=== PATIENT | male | born 1930 | race Caucasian/White ===

== ENCOUNTER 2018-01-05 04:53 | Emergency (ER) | payer MEDICARE, OTHER ==
[2018-01-05] MEDS ORDERED: METOPROLOL TARTRATE 25 MG TABLET PO STA (05:33)
[2018-01-05] MEDS ORDERED: METOPROLOL TARTRATE 25 MG TABLET ONE (05:33)
[2018-01-05 05:37] LABS: Hematocrit 40.1 % (42.0-52.0); Hemoglobin 13.8 gm/dL (13.5-18.0); Mean Cell Volume 90.9 fl (78-100); Mean Corpuscular Hemoglobin 31.3 pg (27-31); Mean Corpuscular Hgb Conc 34.4 g/dl (32-36); Mean Platelet Volume 9.8 fl (6.0-9.5); Neutrophil # 4.4 K/mm3 (1.3-6.0); Neutrophil % 64.3 % (42-75.0); Platelet Count 139 K/mm3 (150-450); Red Blood Count 4.41 M/mm3 (4.7-6.0); Red Cell Distribution Width 14.1 % (11.5-14.0); White Blood Count 6.8 K/mm3 (4.0-10.5)
[2018-01-05 05:48] LABS: Prothrombin Time (Patient) 13.8 Seconds (9.0-11.0)
[2018-01-05 05:50] LABS: INR 1.38 INR (0.90-1.10); Partial Thrombolplastin Time 32.5 Seconds (24-32)
[2018-01-05 05:58] LABS: Albumin * 3.5 gm/dl (3.4-5.0); Anion Gap 13.9 mmol/L (6.8-13.8); Bilirubin, Total 0.5 mg/dL (0.0-1.1); Ca. Corrected For Albumin 9.3 mg/dL (8.4-10.2); Calcium * 9.2 mg/dL (7.9-10.9); Carbon Dioxide 27.2 mmol/L (24-32.6); Potassium 4.1 mmol/L (3.4-4.6); Total Protein 6.4 gm/dL (6.2-8.2)
[2018-01-05 06:00] LABS: Troponin I 0.048 ng/ml (0.00-0.10)
--- NOTE | 2018-01-05 06:05 | ERNOTE ---
Chest Pain/Cardiac HPI Date of Service: 01/05/18 Chief Complaint: Palpitations Time Seen by Provider: 01/05/18 05:13 Source: patient Exam Limitations: no limitations Immunizations: IMMUNIZATION HX Immunizations Up to Date Yes History of Influenza Vaccine Yes Hx Pneumococcal Vaccination Yes Allergies/Adverse Reactions: Allergies codeine Allergy (Verified 01/05/18 05:16) diltiazem HCl [From Tiazac] Allergy (Verified 01/05/18 05:16) Home Medications: HOME MEDICATIONS Acetaminophen [Tylenol] 500 mg PO TID 10/23/16 [Last Taken Unknown] Albuterol Sulfate [Proair Respiclick] 90 mcg IH PRN PRN 10/23/16 [Last Taken Unknown] Atorvastatin Calcium 80 mg PO DAILY 10/23/16 [Last Taken Unknown] Calcium Carbonate/Vitamin D3 [Calcium 600 + D3 Softgel] 1 each PO DAILY [Last Taken Unknown] Cider Vinegar [Apple Cider Vinegar] 300 mg PO DAILY 10/23/16 [Last Taken Unknown ] Cinnamon Bark [Cinnamon] 1,000 mg PO DAILY 10/23/16 [Last Taken Unknown] Cyclobenzaprine HCl 10 mg PO PRN PRN 10/23/16 [Last Taken Unknown] Doxycycline Monohydrate 90 mg PO DAILY 10/23/16 [Last Taken Unknown] Furosemide [Lasix] 20 mg PO DAILY 10/23/16 [Last Taken Unknown] Glucosam/Chondr/Collagn/Hyalur [Glucosamine & Chondroitin Cap] 1 each PO DAILY 10/23/16 [Last Taken Unknown] Lisinopril [Zestril] 10 mg PO DAILY 10/23/16 [Last Taken Unknown] Metoprolol Succinate [Toprol Xl] 50 mg PO DAILY 10/23/16 [Last Taken Unknown] Nitroglycerin 0.4 mg SL PRN PRN 10/23/16 [Last Taken Unknown] Rivaroxaban [Xarelto] 20 mg PO DAILY 10/23/16 [Last Taken Unknown] Sertraline HCl [Zoloft] 100 mg PO DAILY 10/23/16 [Last Taken Unknown] Narrative: patient c/o of irregular heart beat and elevated bp Timing: intermittent Severity/Quality: mild Chest Pain Radiation: no radiation Activities at Onset: rest Modifying Factors - Improves: Present: nothing Modifying Factors - Worsens: Present: movement Nitro Today/Relief: 0.4 mg x 1 Aspirin Treatment Today: no aspirin today Associated Symptoms: Present: dizziness, palpitations Prior Chest Pain/Cardiac Workup: Reports: prior chest pain, heart attack, cardiac cath, other - cabg Review of Systems - Review of Systems Constitutional: Present: fatigue, malaise EYE: Present: no symptoms reported ENT: Present: no symptoms reported Respiratory: Present: no symptoms reported Cardiology: Present: See HPI, palpitations Gastrointestinal/Abdominal: Present: no symptoms reported Genitourinary: Present: no symptoms reported Musculoskeletal: Present: no symptoms reported Skin: Present: no symptoms reported Neurological: Present: no symptoms reported Endocrine: Present: no symptoms reported Hematologic/Lymphatic: Present: no symptoms reported - Narrative Narrative: unremarkable - Patient's Past Medical History Patient History - Medical: Arthritis, Cataracts, GERD, Kidney stone, Osteoarthritis Patient History - Cardiac/Respiratory: Coronary Heart Disease, Hypertension, Hyperlipidemia Patient History - Cancer: No Hx of Cancer Patient History - Surgical Procedures: Cholecystectomy, Colonoscopy, Coronary Bypass Surgery, Total Hip Replacement Patient History - Other: None - Family History Family History:: no untoward family reactions to anesthesia, no familial bleeding tendencies, no family history of clotting disorders, no family history of premature - Social History Living Situations: spouse Abuse History: No History of abuse Psych History: No pertinent hx Does anyone smoke in the home?: No Smoking Status: Former smoker Have you smoked in the past 12 months: No Do you dip or chew tobacco: No Patient requests Smoking Cessation Consult: No Initiate information on Smoking Cessation: No Alcohol Use: occasionally Drug Use: none - Immunizations Immunizations Up to Date: Yes Hx Pneumococcal Vaccination: Yes History of Influenza Vaccine: Yes Physical Exam - Physical Exam General Appearance: Present: mild distress, anxious Head Exam: Present: normal inspection, no evidence of injury Eye Exam: Normal inspection: bilateral, PERRL: bilateral, EOMI: bilateral Ears, Nose, Throat: Present: normal ENT inspection Neck: Present: normal inspection, nontender Respiratory: Present: no respiratory distress, normal breath sounds, no accessory muscle use, chest nontender, lungs clear Cardiovascular/Chest: Present: regular rate, rhythm, no murmur, normal peripheral pulses Peripheral Pulses: N=norm/S=strong/W=weak/B=bound/A=absent: Carotid (R): Normal , Carotid (L): Normal, Radial (R): Normal, Radial (L): Normal, Femoral (R): Normal, Femoral (L): Normal, Dorsalis-pedis (R): Normal, Dorsalis-pedis (L): Normal Gastrointestinal/Abdominal: Present: normal bowel sounds, nontender, nondistended, soft, no organomegaly Back Exam: Present: normal inspection, normal range of motion, no CVA tenderness , no vertebral tenderness Extremity Exam: Present: normal inspection, non-tender, normal range of motion, no edema Neurological Exam: Present: alert, oriented, normal mood/affect DTR: N=norm/NB=norm/brisk/A=abs/DD=dull/dimin/HC=hyperactive: Bicep (R): Normal , Bicep (L): Normal, Tricep (R): Normal, Tricep (L): Normal, Knee (R): Normal, Knee (L): Normal, Ankle (R): Normal, Ankle (L): Normal Skin Exam: Present: normal color, warm/dry Lymphatic Exam: Present: no adenopathy ED Progress - Date and Time Seen: Date and Time: 01/05/18 06:41 patient improved discussed labs and condition, to be dismissed - Results and Orders Patient's Lab Results:: I have reviewed the patient's lab results. - Vital Signs Patient's Vital Signs:: I have reviewed the patient's vital signs. Vital Signs: Vital Signs 01/05/18 01/05/18 01/05/18 05:00 05:10 05:36 Temperature 36.0 C L Pulse Rate 96 96 96 Respiratory 12 Rate Blood Pressure 171/86 158/62 O2 Sat by Pulse 97 Oximetry - EKG EKG: NSR - Progress/Reassessment Chief Complaint: Palpitations Progress:: Improved - Transfer of Care Expected Disposition: Discharge Plan - Plan Plan: to be discharged Departure Clinical Impression: Palpitations - Departure Disposition: Home Follow Up Needed Condition: Fair Instructions: Palpitations, [id number] Referrals: Ashvin Hernandez MD [Primary Care Provider] -
[2018-01-05 06:48] VITALS: BP 128/65
== END 2018-01-05 06:58 | disposition home or self-care (01) ==
LOC: ER 04:53
DX: Z79.01 Long term (current) use of anticoagulants; I50.9 Heart failure, unspecified; Z87.891 Personal history of nicotine dependence; I10 Essential (primary) hypertension; E78.5 Hyperlipidemia, unspecified; R00.2 Palpitations; Z87.442 Personal history of urinary calculi